=== PATIENT | female | born 1985 | race Caucasian/White ===

== ENCOUNTER 2019-11-25 07:06 | Emergency (ER) | payer OTHER ==
[~2019-11-25] VITALS: Ht 170.2 cm; Wt 72.6 kg
[2019-11-25 07:10] VITALS: BP 119/73
[2019-11-25] MEDS ORDERED: TRAMADOL 50 MG50 MG PO (07:40)
[2019-11-25] MEDS ORDERED: PREDNISONE 20 M20 M1 PO (07:40)
== END 2019-11-25 07:48 | disposition home or self-care (01) ==
LOC: M.ERS 07:06
DX: M26.621 Arthralgia of right temporomandibular joint (principal)